=== PATIENT | male | born 1960 | race American Indian/Alaskan Native ===

== ENCOUNTER 2017-06-17 03:55 | Emergency (ER) | payer OTHER ==
--- NOTE | 2017-06-17 05:01 | XRay Report ---
FINAL REPORT EXAM: XR CHEST ROUTINE 2V HISTORY: Shortness of breath TECHNIQUE: PA and lateral views of the chest were submitted. FINDINGS: The heart is mildly enlarged. The lungs appear mildly congested. There is slight thickening of the fissures. There are no localized infiltrates. Pleural fluid is not seen. The skeletal structures are well-maintained. IMPRESSION: Cardiomegaly with mild vascular congestion. No localized infiltrates.
[2017-06-17 05:37] LABS: BUN/Creatinine Ratio 15; Blood Urea Nitrogen 15 mg/dL (9-20); Calcium 8.7 mg/dL (8.4-10.2); Hemolysis Index 3
[2017-06-17 05:38] LABS: Basophils % (Auto) 1.2 % (0.0-1.8); Eosinophils # (Auto) 0.1 K/mm3 (0.0-0.4); Eosinophils % (Auto) 1.6 % (0.0-4.3); Hematocrit 50.7 % (35.5-45.6); Hemoglobin 17.1 gm/dl (11.8-15.2); Lymphocytes % (Auto) 25.8 % (13.4-35.0); Mean Corpuscular HGB Conc 34 % (32-34); Mean Corpuscular Hemoglobin 29 pg (28-32); Mean Corpuscular Volume 87 fl (84-94); Monocytes # (Auto) 0.3 K/mm3 (0.0-0.8); Red Blood Count 5.85 M/mm3 (3.65-5.03)
[2017-06-17 05:45] LABS: Platelet Count 278 K/mm3 (140-440)
--- NOTE | 2017-06-17 13:16 | Emergency Department Report ---
ED Shortness of Breath HPI - General Chief Complaint: Dyspnea/Respdistress Stated Complaint: CHAY Time Seen by Provider: 06/17/17 13:01 Source: patient, EMS Mode of arrival: Ambulatory Limitations: No Limitations - History of Present Illness Initial Comments: Patient is a 56-year-old [place] male with past medical history of congestive heart failure with EF of 20% and hypertension and has been off his meds for approximately one year secondary to finances. Patient states he has a nonproductive cough with exertion at times. The patient denies any chest pain at this time. Patient is now that working and states he wants to try to get back on his meds because he is having shortness of breath. The patient denies any fevers chills nausea vomiting chest pain headache at this time. Associated Symptoms: cough - Related Data Previous Rx's Medication Instructions Recorded Last Taken Type Aspirin [Aspirin BABY CHEW TAB] 81 mg PO QDAY #30 tab.chew 06/17/17 Unknown Rx Furosemide [Lasix] 20 mg PO DAILY #30 tablet 06/17/17 Unknown Rx Lisinopril [Zestril TAB] 5 mg PO QDAY #30 tablet 06/17/17 Unknown Rx Metoprolol [Lopressor TAB] 50 mg PO BID #60 tablet 06/17/17 Unknown Rx Simvastatin [Zocor TAB] 20 mg PO QHS #30 tablet 06/17/17 Unknown Rx Allergies Allergy/AdvReac Type Severity Reaction Status Date / Time No Known Allergies Allergy Verified 06/17/17 04:42 ED Review of Systems ROS: Stated complaint: CHAY Other details as noted in HPI Comment: All other systems reviewed and negative ED Past Medical Hx - Past Medical History Previous Medical History?: Yes Hx Hypertension: Yes Hx Congestive Heart Failure: Yes - Surgical History Past Surgical History?: Yes Additional Surgical History: bilateral kness - Social History Smoking Status: Never Smoker Substance Use Type: None - Medications Home Medications: Home Medications Medication Instructions Recorded Confirmed Last Taken Type Aspirin [Aspirin BABY CHEW TAB] 81 mg PO QDAY #30 tab.chew 06/17/17 Unknown Rx Furosemide [Lasix] 20 mg PO DAILY #30 tablet 06/17/17 Unknown Rx Lisinopril [Zestril TAB] 5 mg PO QDAY #30 tablet 06/17/17 Unknown Rx Metoprolol [Lopressor TAB] 50 mg PO BID #60 tablet 06/17/17 Unknown Rx Simvastatin [Zocor TAB] 20 mg PO QHS #30 tablet 06/17/17 Unknown Rx ED Physical Exam - General Limitations: No Limitations General appearance: alert, in no apparent distress - Head Head exam: Present: atraumatic, normocephalic - Eye Eye exam: Present: normal appearance - ENT ENT exam: Present: mucous membranes moist - Neck Neck exam: Present: normal inspection - Respiratory Respiratory exam: Present: normal lung sounds bilaterally. Absent: respiratory distress, wheezes, rales, rhonchi - Cardiovascular Cardiovascular Exam: Present: normal rhythm, tachycardia. Absent: systolic murmur, diastolic murmur, rubs, gallop - GI/Abdominal GI/Abdominal exam: Present: soft, normal bowel sounds. Absent: distended, tenderness, guarding, rebound - Rectal Rectal exam: Present: deferred - Extremities Exam Extremities exam: Present: normal inspection - Back Exam Back exam: Present: normal inspection - Neurological Exam Neurological exam: Present: alert, oriented X3 - Psychiatric Psychiatric exam: Present: normal affect, normal mood - Skin Skin exam: Present: warm, dry, intact, normal color. Absent: rash ED Course Vital Signs 06/17/17 04:38 Temperature 98.2 F Pulse Rate 111 H Respiratory 18 Rate Blood Pressure 168/100 O2 Sat by Pulse 96 Oximetry ED Medical Decision Making - Lab Data Result diagrams: 06/17/17 05:13 06/17/17 05:10 Lab Results 06/17/17 06/17/17 Range/Units 05:10 05:13 WBC 3.9 L (4.5-11.0) K/mm3 RBC 5.85 H (3.65-5.03) M/mm3 Hgb 17.1 H (11.8-15.2) gm/dl Hct 50.7 H (35.5-45.6) % MCV 87 (84-94) fl MCH 29 (28-32) pg MCHC 34 (32-34) % RDW 15.0 (13.2-15.2) % Plt Count 278 (140-440) K/mm3 Lymph % (Auto) 25.8 (13.4-35.0) % [place] % (Auto) 9.0 H (0.0-7.3) % Eos % (Auto) 1.6 (0.0-4.3) % Baso % (Auto) 1.2 (0.0-1.8) % Lymph # 1.0 L (1.2-5.4) K/mm3 [place] # 0.3 (0.0-0.8) K/mm3 Eos # 0.1 (0.0-0.4) K/mm3 Baso # 0.0 (0.0-0.1) K/mm3 Seg Neutrophils % 62.4 (40.0-70.0) % Seg Neutrophils # 2.4 (1.8-7.7) K/mm3 Sodium 143 (137-145) mmol/L Potassium 4.2 (3.6-5.0) mmol/L Chloride 105.5 (98-107) mmol/L Carbon Dioxide 22 (22-30) mmol/L Anion Gap 20 mmol/L BUN 15 (9-20) mg/dL Creatinine 1.0 (0.8-1.5) mg/dL Estimated GFR > 60 ml/min BUN/Creatinine Ratio 15 % Glucose 117 H (75-100) mg/dL Calcium 8.7 (8.4-10.2) mg/dL Troponin T 0.014 (0.00-0.029) ng/mL NT-Pro-B Natriuret Pep 799.2 (0-900) pg/mL - EKG Data -: EKG Interpreted by Ct - EKG Data Interpretation: other (EKG shows sinus tachycardia 111 is incomplete left bundle branch block and LVH patient has T-wave inversions in lateral leads there is no obvious ST elevation consistent with a STEMI time of interpretation is 4:07 AM this EKG is compared to previous EKG that showed no significant changes) - Radiology Data Radiology results: report reviewed Chest x-ray shows cardiomegaly with vascular congestion but no overt evidence of failure - Medical Decision Making Patient is a 56-year-old [place] male who is complaining of shortness of breath at times. Patient's been off of his blood pressure medicines and Lasix for approximately 1 year. The patient states that working will have health insurance plan next week. Patient be restarted on his metoprolol for his hypertension and tachycardia as well as lisinopril 5 mg and Lasix 20 mg daily and patient will be discharged home follow with cardiology. Critical care attestation.: If time is entered above; I have spent that time in minutes in the direct care of this critically ill patient, excluding procedure time. ED Disposition Clinical Impression: Hypertensive urgency Cardiomyopathy Qualifiers: Cardiomyopathy type: unspecified Qualified Code(s): I42.9 - Cardiomyopathy, unspecified Disposition: TO HOME OR SELFCARE Is pt being admited?: No Does the pt Need Aspirin: No Condition: Stable Instructions: Chronic Hypertension (ED), Heart Failure (ED) Prescriptions: Simvastatin [Zocor TAB] 20 mg PO QHS #30 tablet Aspirin [Aspirin BABY CHEW TAB] 81 mg PO QDAY #30 tab.chew Furosemide [Lasix] 20 mg PO DAILY #30 tablet Lisinopril [Zestril TAB] 5 mg PO QDAY #30 tablet Metoprolol [Lopressor TAB] 50 mg PO BID #60 tablet Referrals: MICHAEL ARZOLA MD [Staff Physician] - 3-5 Days
[2017-06-17] MEDS ORDERED: LASIX PO ONE (13:21)
[2017-06-17] MEDS ORDERED: CATAPRES PO ONE (13:21)
[2017-06-17 14:12] VITALS: BP 156/100
== END 2017-06-17 14:13 | disposition home or self-care (01) ==
LOC: ED 03:55
DX: I16.0 Hypertensive urgency (principal); I11.0 Hypertensive heart disease with heart failure; I50.9 Heart failure, unspecified; I42.9 Cardiomyopathy, unspecified
CPT/HCPCS: 36415; 71046; 80048; 83880; 84484; 85025; 93005; 93010

== ENCOUNTER 2020-05-01 10:37 | Inpatient (IN) | payer OTHER ==
--- NOTE | 2020-05-01 12:02 | Event Note ---
ED Screening Note Date of service: 05/01/20 Time: 12:01 ED Screening Note: 59 year AA male with pmhx of CHF, HTN, HPLD presents to ED c/o SOB. Onset about 1 week ago, worse today. He denies any associated chest pain, cough, wheezing, nausea, vomiting or leg swelling. Patient states that he has been out of all of his medication for the past 2 to 3 months. 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 Denies tobacco use. He denies any lung disease. This initial assessment/diagnostic orders/clinical plan/treatment(s) is/are subject to change based on patients health status, clinical progression and re-assessment by fellow clinical providers in the ED. Further treatment and workup at subsequent clinical providers discretion. Patient/guardian urged not to elope from the ED as their condition may be serious if not clinically assessed and managed. Initial orders include: Chest pain order set including BNP
--- NOTE | 2020-05-01 12:39 | XRay Report ---
XR chest routine 2V INDICATION / CLINICAL INFORMATION: Congestive heart failure, shortness of breath. COMPARISON: None available. FINDINGS: SUPPORT DEVICES: None. HEART /PULMONARY VASCULATURE: Cardiac silhouette is enlarged and pulmonary vasculature is mildly pacheco ested. LUNGS / PLEURA: Patchy airspace opacities are present within the right mid and lower lung. Left lung is largely clear. No pneumothorax. ADDITIONAL FINDINGS: No significant additional findings. IMPRESSION: Asymmetric airspace opacity in the right mid and lower lung may reflect asymmetric pulmonary edema re lated to CHF. Recommend correlation to exclude superimposed atypical infectious or inflammatory pneum onitis. Signer Name: Evelio Pérez MD Signed: 05/01/2020 12:34 PM Workstation Name: [id number]
[2020-05-01 13:26] LABS: Basophils % (Auto) 0.8 % (0.0-1.8); Eosinophils % (Auto) 0.1 % (0.0-4.3); Hematocrit 46.4 % (35.5-45.6); Hemoglobin 15.5 gm/dl (11.8-15.2); Lymphocytes # (Auto) 0.7 K/mm3 (1.2-5.4); Lymphocytes % (Auto) 11.9 % (13.4-35.0); Mean Corpuscular HGB Conc 33 % (32-34); Mean Corpuscular Volume 93 fl (84-94); Monocytes # (Auto) 0.6 K/mm3 (0.0-0.8); Monocytes % (Auto) 10.1 % (0.0-7.3); Platelet Count 353 K/mm3 (140-440); Red Blood Count 5.01 M/mm3 (3.65-5.03); Red Cell Distribution Width 17.1 % (13.2-15.2)
[2020-05-01 13:50] LABS: Alanine Aminotransferase 15 units/L (7-56); Albumin 4.1 g/dL (3.9-5); BUN/Creatinine Ratio 13; Blood Urea Nitrogen 14 mg/dL (9-20); Calcium 9.4 mg/dL (8.4-10.2); Hemolysis Index 10
[2020-05-01 14:52] LABS: Chol/HDL Ratio 3.44 %; HDL Cholesterol 67 mg/dL (40-59); LDL Cholesterol,Direct 162 mg/dL (50-130)
[2020-05-01 18:26] LABS: Bilirubin,Urine NEG (Negative); Blood,Urine SM (Negative); Color,Urine Yellow (Yellow); Mucus,Urine 1+ /HPF
[2020-05-01] MEDS ORDERED: FUROSEMIDE 40 MG/4 ML INJ IV ONE (18:33)
--- NOTE | 2020-05-01 18:33 | Emergency Department Report ---
ED General Adult HPI - General Chief complaint: Dyspnea/Respdistress Stated complaint: MED REFILL/SOB Time Seen by Provider: 05/01/20 11:10 Source: patient, EMS Mode of arrival: Wheelchair Limitations: No Limitations - History of Present Illness Initial comments: The patient presents to the emergency department with a chief complaint of shortness of breath that has gotten worse over the last 3 to 4 days. Patient states he was at urgent care given the physical for a new job that he recently obtained. Patient states he has a history congestive heart failure but has not had his medications for the last 2 months because he lost his last job. Patient denies any chest pain, abdominal pain, headache. Patient states that he cannot lay down without getting short of breath. He also states that any movement causes shortness of breath. -: Gradual Severity scale (0 -10): 0 Consistency: constant Improves with: rest Worsens with: movement Associated Symptoms: denies other symptoms, shortness of breath. denies: chest pain, nausea/vomiting Treatments Prior to Arrival: none - Related Data Previous Rx's Medication Instructions Recorded Last Taken Type Aspirin [Aspirin BABY CHEW TAB] 81 mg PO QDAY #30 tab.chew 06/17/17 Unknown Rx Furosemide [Lasix] 20 mg PO DAILY #30 tablet 06/17/17 Unknown Rx Metoprolol [Lopressor TAB] 50 mg PO BID #60 tablet 06/17/17 Unknown Rx Simvastatin (Nf) [Zocor TAB] 20 mg PO QHS #30 tablet 06/17/17 Unknown Rx lisinopriL [Zestril TAB] 5 mg PO QDAY #30 tablet 06/17/17 Unknown Rx Allergies Allergy/AdvReac Type Severity Reaction Status Date / Time No Known Allergies Allergy Verified 06/17/17 04:42 ED Review of Systems ROS: Stated complaint: MED REFILL/SOB Other details as noted in HPI Comment: All other systems reviewed and negative Constitutional: denies: chills, fever Eyes: denies: eye pain, eye discharge, vision change ENT: denies: ear pain, throat pain Respiratory: shortness of breath. denies: cough, wheezing Cardiovascular: denies: chest pain, palpitations Endocrine: no symptoms reported Gastrointestinal: denies: abdominal pain, nausea, diarrhea Genitourinary: denies: urgency, dysuria Musculoskeletal: denies: back pain, joint swelling, arthralgia Skin: denies: rash, lesions Neurological: denies: headache, weakness, paresthesias Psychiatric: denies: anxiety, depression Hematological/Lymphatic: denies: easy bleeding, easy bruising ED Past Medical Hx - Past Medical History Previous Medical History?: Yes Hx Hypertension: Yes Hx Congestive Heart Failure: Yes Additional medical history: high cholestrol - Surgical History Past Surgical History?: Yes Additional Surgical History: bilateral kness - Social History Smoking Status: Never Smoker Substance Use Type: None - Medications Home Medications: Home Medications Medication Instructions Recorded Confirmed Last Taken Type Aspirin [Aspirin BABY CHEW TAB] 81 mg PO QDAY #30 tab.chew 06/17/17 Unknown Rx Furosemide [Lasix] 20 mg PO DAILY #30 tablet 06/17/17 Unknown Rx Metoprolol [Lopressor TAB] 50 mg PO BID #60 tablet 06/17/17 Unknown Rx Simvastatin (Nf) [Zocor TAB] 20 mg PO QHS #30 tablet 06/17/17 Unknown Rx lisinopriL [Zestril TAB] 5 mg PO QDAY #30 tablet 06/17/17 Unknown Rx ED Physical Exam - General Limitations: No Limitations General appearance: alert, in no apparent distress - Head Head exam: Present: atraumatic, normocephalic - Eye Eye exam: Present: normal appearance - ENT ENT exam: Present: mucous membranes moist - Neck Neck exam: Present: normal inspection - Respiratory Respiratory exam: Present: rales (bilaterally ). Absent: respiratory distress - Cardiovascular Cardiovascular Exam: Present: normal rhythm, tachycardia. Absent: systolic murmur, diastolic murmur, rubs, gallop - GI/Abdominal GI/Abdominal exam: Present: soft, normal bowel sounds. Absent: distended, tenderness - Rectal Rectal exam: Present: deferred - Extremities Exam Extremities exam: Present: normal inspection - Back Exam Back exam: Present: normal inspection - Neurological Exam Neurological exam: Present: alert, oriented X3, CN II-XII intact. Absent: motor sensory deficit - Psychiatric Psychiatric exam: Present: normal affect, normal mood - Skin Skin exam: Present: warm, dry, intact, normal color. Absent: rash ED Course Vital Signs 05/01/20 10:49 Temperature 98.3 F Pulse Rate 127 H Respiratory 22 Rate Blood Pressure 129/99 [Right] O2 Sat by Pulse 94 Oximetry ED Medical Decision Making - Lab Data Result diagrams: 05/01/20 12:42 05/01/20 12:42 Lab Results 05/01/20 05/01/20 05/01/20 Range/Units 12:42 12:42 12:42 WBC 5.7 (4.5-11.0) K/mm3 RBC 5.01 (3.65-5.03) M/mm3 Hgb 15.5 H (11.8-15.2) gm/dl Hct 46.4 H (35.5-45.6) % MCV 93 (84-94) fl MCH 31 (28-32) pg MCHC 33 (32-34) % RDW 17.1 H (13.2-15.2) % Plt Count 353 (140-440) K/mm3 Lymph % (Auto) 11.9 L (13.4-35.0) % [place] % (Auto) 10.1 H (0.0-7.3) % Eos % (Auto) 0.1 (0.0-4.3) % Baso % (Auto) 0.8 (0.0-1.8) % Lymph # (Auto) 0.7 L (1.2-5.4) K/mm3 [place] # (Auto) 0.6 (0.0-0.8) K/mm3 Eos # (Auto) 0.0 (0.0-0.4) K/mm3 Baso # (Auto) 0.0 (0.0-0.1) K/mm3 Seg Neutrophils % 77.1 H (40.0-70.0) % Seg Neutrophils # 4.4 (1.8-7.7) K/mm3 Sodium 141 (137-145) mmol/L Potassium 4.6 (3.6-5.0) mmol/L Chloride 107.1 H (98-107) mmol/L Carbon Dioxide 21 L (22-30) mmol/L Anion Gap 18 mmol/L BUN 14 (9-20) mg/dL Creatinine 1.1 (0.8-1.3) mg/dL Estimated GFR > 60 ml/min BUN/Creatinine Ratio 13 % Glucose 87 (75-100) mg/dL Calcium 9.4 (8.4-10.2) mg/dL Magnesium 2.10 (1.7-2.3) mg/dL Total Bilirubin 0.90 (0.1-1.2) mg/dL AST 19 (5-40) units/L ALT 15 (7-56) units/L Alkaline Phosphatase 59 (35-129) units/L Troponin T 0.248 H* (0.00-0.029) ng/mL NT-Pro-B Natriuret Pep 1929 H (0-900) pg/mL Total Protein 6.8 (6.3-8.2) g/dL Albumin 4.1 (3.9-5) g/dL Albumin/Globulin Ratio 1.5 % Triglycerides 64 (2-149) mg/dL Cholesterol 231 H (50-199) mg/dL LDL Cholesterol Direct 162 H (50-130) mg/dL HDL Cholesterol 67 H (40-59) mg/dL Cholesterol/HDL Ratio 3.44 % Urine Color (Yellow) Urine Turbidity (Clear) Urine pH (5.0-7.0) Ur Specific [place] (1.003-1.030) Urine Protein (Negative) mg/dL Urine Glucose (UA) (Negative) mg/dL Urine Ketones (Negative) mg/dL Urine Blood (Negative) Urine Nitrite (Negative) Urine Bilirubin (Negative) Urine Urobilinogen (<2.0) mg/dL Ur Leukocyte Esterase (Negative) Urine WBC (Auto) (0.0-6.0) /HPF Urine RBC (Auto) (0.0-6.0) /HPF U Epithel Cells (Auto) (0-13.0) /HPF Urine Mucus /HPF 05/01/20 05/01/20 Range/Units 14:59 Unknown WBC (4.5-11.0) K/mm3 RBC (3.65-5.03) M/mm3 Hgb (11.8-15.2) gm/dl Hct (35.5-45.6) % MCV (84-94) fl MCH (28-32) pg MCHC (32-34) % RDW (13.2-15.2) % Plt Count (140-440) K/mm3 Lymph % (Auto) (13.4-35.0) % [place] % (Auto) (0.0-7.3) % Eos % (Auto) (0.0-4.3) % Baso % (Auto) (0.0-1.8) % Lymph # (Auto) (1.2-5.4) K/mm3 [place] # (Auto) (0.0-0.8) K/mm3 Eos # (Auto) (0.0-0.4) K/mm3 Baso # (Auto) (0.0-0.1) K/mm3 Seg Neutrophils % (40.0-70.0) % Seg Neutrophils # (1.8-7.7) K/mm3 Sodium (137-145) mmol/L Potassium (3.6-5.0) mmol/L Chloride (98-107) mmol/L Carbon Dioxide (22-30) mmol/L Anion Gap mmol/L BUN (9-20) mg/dL Creatinine (0.8-1.3) mg/dL Estimated GFR ml/min BUN/Creatinine Ratio % Glucose (75-100) mg/dL Calcium (8.4-10.2) mg/dL Magnesium (1.7-2.3) mg/dL Total Bilirubin (0.1-1.2) mg/dL AST (5-40) units/L ALT (7-56) units/L Alkaline Phosphatase (35-129) units/L Troponin T 0.252 H* (0.00-0.029) ng/mL NT-Pro-B Natriuret Pep (0-900) pg/mL Total Protein (6.3-8.2) g/dL Albumin (3.9-5) g/dL Albumin/Globulin Ratio % Triglycerides (2-149) mg/dL Cholesterol (50-199) mg/dL LDL Cholesterol Direct (50-130) mg/dL HDL Cholesterol (40-59) mg/dL Cholesterol/HDL Ratio % Urine Color Yellow (Yellow) Urine Turbidity Slightly-cloudy (Clear) Urine pH 5.0 (5.0-7.0) Ur Specific [place] 1.019 (1.003-1.030) Urine Protein 100 mg/dl (Negative) mg/dL Urine Glucose (UA) Neg (Negative) mg/dL Urine Ketones Tr (Negative) mg/dL Urine Blood Sm (Negative) Urine Nitrite Neg (Negative) Urine Bilirubin Neg (Negative) Urine Urobilinogen 2.0 (<2.0) mg/dL Ur Leukocyte Esterase Tr (Negative) Urine WBC (Auto) 19.0 H (0.0-6.0) /HPF Urine RBC (Auto) 1.0 (0.0-6.0) /HPF U Epithel Cells (Auto) 2.0 (0-13.0) /HPF Urine Mucus 1+ /HPF - EKG Data -: EKG Interpreted by Me EKG shows normal: sinus rhythm Rate: tachycardia - Radiology Data Radiology results: report reviewed - Medical Decision Making IV Lasix given Discussed results with patient Elevated troponin likely secondary to leak from myocardial stretch Critical Care Time: Yes Critical care time in (mins) excluding proc time.: 35 Critical care attestation.: If time is entered above; I have spent that time in minutes in the direct care of this critically ill patient, excluding procedure time. ED Disposition Clinical Impression: Acute exacerbation of CHF (congestive heart failure), Elevated troponin Disposition: DC-09 OP ADMIT IP TO THIS HOSP Is pt being admited?: Yes Does the pt Need Aspirin: Yes Condition: Fair Referrals: PRIMARY CARE, [Primary Care Provider] - 3-5 Days
[2020-05-01] MEDS ORDERED: ASPIRIN 81 MG TAB CHEW PO ONE (18:43)
--- NOTE | 2020-05-01 20:16 | History and Physical Report ---
History of Present Illness Date of examination: 05/01/20 Date of admission: 05/01/20 18:43 Chief complaint: Shortness of breath History of present illness: The patient presents to the emergency department with a chief complaint of shortness of breath that has gotten worse over the last 3 to 4 days. Patient states he was at urgent care given the physical for a new job that he recently obtained. Patient states he has a history congestive heart failure but has not had his medications for the last 2 months because he lost his last job. Patient denies any chest pain, abdominal pain, headache. Patient states that he cannot lay down without getting short of breath. He also states that any movement causes shortness of breath Past History Past Medical History: hypertension, hyperlipidemia Past Surgical History: No surgical history Social history: alcohol abuse (occasional drinker) Family history: no significant family history Medications and Allergies Allergies Allergy/AdvReac Type Severity Reaction Status Date / Time No Known Allergies Allergy Verified 06/17/17 04:42 Home Medications Medication Instructions Recorded Confirmed Last Taken Type Aspirin [Aspirin BABY CHEW TAB] 81 mg PO QDAY #30 tab.chew 06/17/17 Unknown Rx Furosemide [Lasix] 20 mg PO DAILY #30 tablet 06/17/17 Unknown Rx Metoprolol [Lopressor TAB] 50 mg PO BID #60 tablet 06/17/17 Unknown Rx Simvastatin (Nf) [Zocor TAB] 20 mg PO QHS #30 tablet 06/17/17 Unknown Rx lisinopriL [Zestril TAB] 5 mg PO QDAY #30 tablet 06/17/17 Unknown Rx Review of Systems Constitutional: fatigue, weakness Ears, nose, mouth and throat: no epistaxis Cardiovascular: shortness of breath, dyspnea on exertion, high blood pressure, decreased exercise tolerance Respiratory: shortness of breath Exam - Constitutional Vitals: Temp Pulse Resp BP Pulse Ox 97.9 F 120 H 22 140/106 99 05/01/20 17:31 05/01/20 17:31 05/01/20 19:31 05/01/20 19:31 05/01/20 19:31 HEART Score - HEART Score Troponin: Troponin T 0.295 ng/mL (0.00-0.029) H* 05/01/20 18:03 Results - Labs CBC & Chem 7: 05/01/20 12:42 05/01/20 12:42 Labs: Abnormal lab results 05/01/20 05/01/20 05/01/20 Range/Units 12:42 12:42 12:42 Hgb 15.5 H (11.8-15.2) gm/dl Hct 46.4 H (35.5-45.6) % RDW 17.1 H (13.2-15.2) % Lymph % (Auto) 11.9 L (13.4-35.0) % [place] % (Auto) 10.1 H (0.0-7.3) % Lymph # (Auto) 0.7 L (1.2-5.4) K/mm3 Seg Neutrophils % 77.1 H (40.0-70.0) % Chloride 107.1 H (98-107) mmol/L Carbon Dioxide 21 L (22-30) mmol/L Troponin T 0.248 H* (0.00-0.029) ng/mL NT-Pro-B Natriuret Pep 1929 H (0-900) pg/mL Cholesterol 231 H (50-199) mg/dL LDL Cholesterol Direct 162 H (50-130) mg/dL HDL Cholesterol 67 H (40-59) mg/dL Urine WBC (Auto) (0.0-6.0) /HPF 05/01/20 05/01/20 05/01/20 Range/Units 14:59 18:03 Unknown Hgb (11.8-15.2) gm/dl Hct (35.5-45.6) % RDW (13.2-15.2) % Lymph % (Auto) (13.4-35.0) % [place] % (Auto) (0.0-7.3) % Lymph # (Auto) (1.2-5.4) K/mm3 Seg Neutrophils % (40.0-70.0) % Chloride (98-107) mmol/L Carbon Dioxide (22-30) mmol/L Troponin T 0.252 H* 0.295 H* (0.00-0.029) ng/mL NT-Pro-B Natriuret Pep (0-900) pg/mL Cholesterol (50-199) mg/dL LDL Cholesterol Direct (50-130) mg/dL HDL Cholesterol (40-59) mg/dL Urine WBC (Auto) 19.0 H (0.0-6.0) /HPF
--- NOTE | 2020-05-01 20:36 | History and Physical Report ---
History of Present Illness Date of examination: 05/01/20 Date of admission: 05/01/20 18:43 Chief complaint: 05/01/20 History of present illness: The patient presents to the emergency department with a chief complaint of shortness of breath that has gotten worse over the last 3 to 4 days. Patient states he was at urgent care given the physical for a new job that he recently obtained. Patient states he has a history congestive heart failure but has not had his medications for the last 2 months because he lost his last job. Patient denies any chest pain, abdominal pain, headache. Patient states that he cannot lay down without getting short of breath. He also states that any movement causes shortness of breath. ED work-up shows WBC 5.7, hemoglobin 15.5, platelet 353, potassium 4.6, sodium 141, CO2 21 and creatinine 1.1. Checks x-ray done-Asymmetric airspace opacity in the right mid and lower lung may reflect asymmetric pulmonary edema related to CHF. Recommend correlation to exclude superimposed atypical infectious or inflammatory pneumonitis. Patient seen at bedside in ED. Patient alert and oriented x3. He said he came due to shortness of breath that was ongoing for 3 to 4 days. He said he has a history of CHF and on medication but have not been taking his medicine since he lost his job. He said he did not have money to buy the medicine. On assessment, patient appears to have mild shortness of breath. He said his symptoms have improved. I reviewed the labs patient has elevated troponin. CK/CKMB ordered. Past History Past Medical History: hypertension, hyperlipidemia Past Surgical History: No surgical history Social history: alcohol abuse (occasional) Medications and Allergies Allergies Allergy/AdvReac Type Severity Reaction Status Date / Time No Known Allergies Allergy Verified 06/17/17 04:42 Home Medications Medication Instructions Recorded Confirmed Last Taken Type Aspirin [Aspirin BABY CHEW TAB] 81 mg PO QDAY #30 tab.chew 06/17/17 Unknown Rx Furosemide [Lasix] 20 mg PO DAILY #30 tablet 06/17/17 Unknown Rx Metoprolol [Lopressor TAB] 50 mg PO BID #60 tablet 06/17/17 Unknown Rx Simvastatin (Nf) [Zocor TAB] 20 mg PO QHS #30 tablet 06/17/17 Unknown Rx lisinopriL [Zestril TAB] 5 mg PO QDAY #30 tablet 06/17/17 Unknown Rx Review of Systems Constitutional: fatigue, weakness Ears, nose, mouth and throat: no epistaxis Cardiovascular: shortness of breath, dyspnea on exertion, high blood pressure Respiratory: shortness of breath Gastrointestinal: no melena Rectal: no hemorrhoids Musculoskeletal: no neck stiffness Integumentary: no rash, no pruritis Psychiatric: no anxiety Hematologic/Lymphatic: no easy bruising Allergic/Immunologic: no urticaria Exam - Constitutional Vitals: Temp Pulse Resp BP Pulse Ox 97.9 F 120 H 22 140/106 99 05/01/20 17:31 05/01/20 17:31 05/01/20 19:31 05/01/20 19:31 05/01/20 19:31 General appearance: Present: mild distress, obese - EENT Eyes: Present: PERRL ENT: hearing intact, clear oral mucosa - Neck Neck: Present: supple, normal ROM - Respiratory Respiratory effort: normal Respiratory: bilateral: diminished - Cardiovascular Heart rate: 122 Heart Sounds: Present: S1 & S2. Absent: rub, click - Extremities Extremities: pulses symmetrical Peripheral Pulses: within normal limits - Abdominal General gastrointestinal: Present: soft, non-tender, non-distended, normal bowel sounds Male genitourinary: Present: normal - Integumentary Integumentary: Present: clear, warm, dry - Musculoskeletal Musculoskeletal: gait normal, strength equal bilaterally - Psychiatric Psychiatric: appropriate mood/affect, intact judgment & insight - Neurologic Neurologic: CNII-XII intact, moves all extremities - Allied Health Allied health notes reviewed: nursing HEART Score - HEART Score Troponin: Troponin T 0.295 ng/mL (0.00-0.029) H* 05/01/20 18:03 Results - Labs CBC & Chem 7: 05/01/20 12:42 05/01/20 12:42 Labs: Abnormal lab results 05/01/20 05/01/20 05/01/20 Range/Units 12:42 12:42 12:42 Hgb 15.5 H (11.8-15.2) gm/dl Hct 46.4 H (35.5-45.6) % RDW 17.1 H (13.2-15.2) % Lymph % (Auto) 11.9 L (13.4-35.0) % [place] % (Auto) 10.1 H (0.0-7.3) % Lymph # (Auto) 0.7 L (1.2-5.4) K/mm3 Seg Neutrophils % 77.1 H (40.0-70.0) % Chloride 107.1 H (98-107) mmol/L Carbon Dioxide 21 L (22-30) mmol/L Troponin T 0.248 H* (0.00-0.029) ng/mL NT-Pro-B Natriuret Pep 1929 H (0-900) pg/mL Cholesterol 231 H (50-199) mg/dL LDL Cholesterol Direct 162 H (50-130) mg/dL HDL Cholesterol 67 H (40-59) mg/dL Urine WBC (Auto) (0.0-6.0) /HPF 05/01/20 05/01/20 05/01/20 Range/Units 14:59 18:03 Unknown Hgb (11.8-15.2) gm/dl Hct (35.5-45.6) % RDW (13.2-15.2) % Lymph % (Auto) (13.4-35.0) % [place] % (Auto) (0.0-7.3) % Lymph # (Auto) (1.2-5.4) K/mm3 Seg Neutrophils % (40.0-70.0) % Chloride (98-107) mmol/L Carbon Dioxide (22-30) mmol/L Troponin T 0.252 H* 0.295 H* (0.00-0.029) ng/mL NT-Pro-B Natriuret Pep (0-900) pg/mL Cholesterol (50-199) mg/dL LDL Cholesterol Direct (50-130) mg/dL HDL Cholesterol (40-59) mg/dL Urine WBC (Auto) 19.0 H (0.0-6.0) /HPF Assessment and Plan - Patient Problems (1) Acute exacerbation of CHF (congestive heart failure) Current Visit: Yes Status: Acute Plan to address problem: Cardioprotective measures with diuretics, BB, statin, and oxygen supplement if needed Screenplay Writer consulted will follow up with recommendation Echo ordered. Chest [id number] airspace opacity in the right mid and lower lung may reflect asymmetric pulmonary edema related to CHF. Recommend correlation to exclude superimposed atypical infectious or inflammatory pneumonitis. (2) HTN (hypertension), malignant Current Visit: No Status: Acute Plan to address problem: Monitor blood pressure Resume home medication Adjust blood pressure medicine if needed (3) Hyperlipemia Current Visit: No Status: Acute Plan to address problem: Patient has history of hyperlipidemia Resume home statin Discussed life style modification-avoid fried foods and animal fats (4) Elevated troponin Current Visit: Yes Status: Acute Plan to address problem: CK/CKMB ordered (5) Acute cystitis Current Visit: Yes Status: Acute Plan to address problem: Urinalysis shows elevated WBC We will start patient on empiric antibiotic (6) Pulmonary edema Current Visit: Yes Status: Acute Plan to address problem: questionable cause-likely 2/2 to CHF/pneumonia Pulmonary edema/lung opacity on chest x-ray Empiric antibiotics and diuretic Echo follow-up with results Cardiology consult (7) DVT prophylaxis Current Visit: No Status: Acute Plan to address problem: SQ lovenox
[2020-05-01] MEDS ORDERED: LACTULOSE 20 GM/30 ML ORAL LIQD PO PRN (21:09)
[2020-05-01] MEDS ORDERED: ALUM-MAG HYDROXIDE-SIMETHICONE 200-200-20MG/5ML ORAL LIQD 30 ML PO PRN (21:09)
[2020-05-01] MEDS ORDERED: ONDANSETRON 4 MG/2 ML INJ IV PRN (21:09)
[2020-05-01] MEDS ORDERED: traZODone 50 MG TAB PO PRN (21:11)
[2020-05-01 21:30] LABS: Creatine Kinase MB 10.1 ng/mL (0.0-4.0)
[2020-05-01] MEDS ORDERED: AZITHROMYCIN/NS 500 MG/250 ML 500 MG/250 ML BAG IV SCH (22:00)
[2020-05-02] MEDS: ENOXAPARIN 40 MG/0.4 ML INJ SUB-Q SCH ×2 (00:19→15:45)
[2020-05-02] MEDS: cefTRIAXone/NS 1 GM/50 ML 1 GM/50 ML BAG IV SCH ×2 (00:20→21:52)
[2020-05-02] MEDS: METOPROLOL TARTRATE 50 MG TAB PO SCH ×3 (00:20→21:49)
[2020-05-02] MEDS: FUROSEMIDE 40 MG/4 ML INJ IV SCH ×2 (06:06→19:48)
--- NOTE | 2020-05-02 13:05 | Consultation ---
History of Present Illness Consult date: 05/02/20 Consult reason: congestive heart failure History of present illness: 59-year old M with a history of dilated nonischemic cardiomyopathy by stress thallium test 6 years ago that reports no significant reversible ischemia but a decrease left ventricular ejection fraction less than 20%. 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 He presents to the hospital with shortness of breath, admitted for further evaluation. Chest x-ray reports cardiomegaly with mild interstitial edema. There was also patchy airspace opacities within the right lung. Patient is currently undergoing workup for coronavirus. COVID test result is pending. Cardiac consultation has been requested for CHF. There is no report of chest pain, no palpitation and no dizziness. There is no lower extremity edema. 12 lead ECG is sinus tachycardia, LVH with repolarization abnormalities. Past History Past Medical History: heart failure, hypertension, hyperlipidemia Past Surgical History: No surgical history Social history: alcohol abuse (occasional) Medications and Allergies Allergies Allergy/AdvReac Type Severity Reaction Status Date / Time No Known Allergies Allergy Verified 06/17/17 04:42 Home Medications Medication Instructions Recorded Confirmed Last Taken Type Aspirin [Aspirin BABY CHEW TAB] 81 mg PO QDAY #30 tab.chew 06/17/17 05/02/20 Unknown Rx Furosemide [Lasix] 20 mg PO DAILY #30 tablet 06/17/17 05/02/20 3 Months Ago Rx ~01/31/20 Atorvastatin Calcium [Lipitor] 80 mg PO DAILY 05/02/20 05/02/20 3 Months Ago History ~01/31/20 ISOSORBIDE MONOnitrate [Imdur ER] 30 mg PO DAILY 05/02/20 05/02/20 3 Months Ago History ~01/31/20 lisinopriL [Zestril TAB] 10 mg PO QDAY 05/02/20 05/02/20 3 Months Ago History ~01/31/20 Active Meds: Active Medications Al Hydrox/Mg Hydrox/Simethicone (Alum-Mag Hydroxide-Simethicone [id number]/5ml Oral Liqd 30 Ml) 15 ml PO Q4H PRN PRN Reason: Indigestion Aspirin (Aspirin Ec 81 Mg Tab) 81 mg PO QDAY SAMARA Atorvastatin Calcium (Atorvastatin 20 Mg Tab) 20 mg PO QHS [facility] Last Admin: 05/02/20 01:56 Dose: 20 mg Documented by: Azithromycin (Azithromycin 250 Mg Tab) 500 mg PO Q24H [facility]; Protocol Stop: 05/05/20 22:01 Enoxaparin Sodium (Enoxaparin 40 Mg/0.4 Ml Inj) 40 mg SUB-Q DAILY [facility]; Protocol Last Admin: 05/02/20 00:19 Dose: 40 mg Documented by: Furosemide (Furosemide 40 Mg/4 Ml Inj) 40 mg IV 0600,1800 [facility] Last Admin: 05/02/20 06:06 Dose: 40 mg Documented by: Ceftriaxone Sodium (Rocephin/Ns 1 Gm/50 Ml) 1 gm in 50 mls @ 100 mls/hr IV Q24H [facility]; Protocol Last Admin: 05/02/20 00:20 Dose: 100 mls/hr Documented by: Lactulose (Lactulose 20 Gm/30 Ml Oral Liqd) 20 gm PO QHS PRN PRN Reason: Constipation Lisinopril (Lisinopril 5 Mg Tab) 5 mg PO QDAY [facility] Metoprolol Tartrate (Metoprolol Tartrate 50 Mg Tab) 50 mg PO BID [facility] Last Admin: 05/02/20 00:20 Dose: 50 mg Documented by: Ondansetron HCl (Ondansetron 4 Mg/2 Ml Inj) 4 mg IV Q4H PRN PRN Reason: Nausea And Vomiting Tramadol HCl (Tramadol 50 Mg Tab) 50 mg PO Q4H PRN PRN Reason: Pain, Moderate (4-6) Trazodone HCl (Trazodone 50 Mg Tab) 50 mg PO QHS PRN PRN Reason: Insomnia Review of Systems Cardiovascular: shortness of breath, no chest pain, no palpitations Physical Examination Vital Signs Temp Pulse Resp BP Pulse Ox 98.3 F 127 H 22 129/99 94 05/01/20 10:49 05/01/20 10:49 05/01/20 10:49 05/01/20 10:49 05/01/20 10:49 General appearance: no acute distress HEENT: Positive: PERRL Neck: Positive: trachea midline Cardiac: Positive: Tachycardia Lungs: Positive: Decreased Breath Sounds Neuro: Positive: Grossly Intact Extremities: Absent: edema Results 05/01/20 12:42 05/01/20 12:42 Cardiac Enzymes 05/01/20 05/01/20 Range/Units 12:42 20:48 AST 19 (5-40) units/L CK-MB (CK-2) 10.1 H (0.0-4.0) ng/mL Lipids 05/01/20 Range/Units 12:42 Triglycerides 64 (2-149) mg/dL Cholesterol 231 H (50-199) mg/dL HDL Cholesterol 67 H (40-59) mg/dL Cholesterol/HDL Ratio 3.44 % CBC 05/01/20 Range/Units 12:42 WBC 5.7 (4.5-11.0) K/mm3 RBC 5.01 (3.65-5.03) M/mm3 Hgb 15.5 H (11.8-15.2) gm/dl Hct 46.4 H (35.5-45.6) % Plt Count 353 (140-440) K/mm3 Lymph # (Auto) 0.7 L (1.2-5.4) K/mm3 [place] # (Auto) 0.6 (0.0-0.8) K/mm3 Eos # (Auto) 0.0 (0.0-0.4) K/mm3 Baso # (Auto) 0.0 (0.0-0.1) K/mm3 Comprehensive Metabolic Panel 05/01/20 Range/Units 12:42 Sodium 141 (137-145) mmol/L Potassium 4.6 (3.6-5.0) mmol/L Chloride 107.1 H (98-107) mmol/L Carbon Dioxide 21 L (22-30) mmol/L BUN 14 (9-20) mg/dL Creatinine 1.1 (0.8-1.3) mg/dL Glucose 87 (75-100) mg/dL Calcium 9.4 (8.4-10.2) mg/dL AST 19 (5-40) units/L ALT 15 (7-56) units/L Alkaline Phosphatase 59 (35-129) units/L Total Protein 6.8 (6.3-8.2) g/dL Albumin 4.1 (3.9-5) g/dL Assessment and Plan - Patient Problems (1) Acute exacerbation of CHF (congestive heart failure) Current Visit: Yes Status: Acute
[2020-05-02] MEDS: LISINOPRIL 5 MG TAB PO SCH (15:45)
[2020-05-02] MEDS: ASPIRIN EC 81 MG TAB PO SCH (15:45)
--- NOTE | 2020-05-02 17:43 | Progress Note ---
Subjective Date of service: 05/02/20 Objective - Constitutional Vitals: Vital Signs - 12hr 05/02/20 05/02/20 05/02/20 09:10 14:00 15:45 Temperature 97.3 F L 98.7 F Pulse Rate 115 H 110 H 108 H Respiratory 18 16 Rate Blood Pressure 162/106 Blood Pressure 129/99 [Right] O2 Sat by Pulse 97 95 Oximetry 05/02/20 15:46 Temperature Pulse Rate 108 H Respiratory Rate Blood Pressure Blood Pressure [Right] O2 Sat by Pulse Oximetry - Labs CBC & Chem 7: 05/01/20 12:42 05/01/20 12:42 Labs: Abnormal lab results 05/01/20 05/01/20 05/01/20 Range/Units 18:03 20:48 Unknown CK-MB (CK-2) 10.1 H (0.0-4.0) ng/mL CK-MB (CK-2) Rel Index 6.6 H (0-4) Troponin T 0.295 H* (0.00-0.029) ng/mL Urine WBC (Auto) 19.0 H (0.0-6.0) /HPF HEART Score - HEART Score Troponin: Troponin T 0.295 ng/mL (0.00-0.029) H* 05/01/20 18:03
[2020-05-02] MEDS ORDERED: AZITHROMYCIN 250 MG TAB PO SCH (22:00)
[2020-05-03] MEDS: traMADol 50 MG TAB PO PRN ×2 (04:25→18:31)
[2020-05-03] MEDS: FUROSEMIDE 40 MG/4 ML INJ IV SCH ×2 (05:47→18:32)
[2020-05-03] MEDS: METOPROLOL TARTRATE 50 MG TAB PO SCH (09:58)
[2020-05-03] MEDS: LISINOPRIL 5 MG TAB PO SCH (09:59)
[2020-05-03] MEDS ORDERED: SPIRONOLACTONE 25 MG TAB PO SCH (10:00)
[2020-05-03] MEDS: ENOXAPARIN 40 MG/0.4 ML INJ SUB-Q SCH (10:05)
[2020-05-03] MEDS: ASPIRIN EC 81 MG TAB PO SCH (10:06)
--- NOTE | 2020-05-03 10:19 | Progress Note ---
Assessment and Plan - Patient Problems (1) Acute exacerbation of CHF (congestive heart failure) Current Visit: Yes Status: Acute Plan to address problem: Hx of dilated nonischemic cardiomyopathy Noncompliant with medical therapy, noncompliant with physician office visits. Echo this presentation shows a LVEF 10-15%. 2013 Echo: LVEF at 20% 2014 Lexiscan thallium stress test was negative. Recommendations: Advised sodium and fluid restrictions. Continue guideline directed medical therapy for systolic heart failure. Subjective Date of service: 05/03/20 Interval history: Patient is resting in bed comfortably and reports he is feeling better. Objective Vital Signs Temp Pulse Resp BP BP Pulse Ox 05/03/20 10:03 98/48 05/03/20 08:06 97 05/03/20 07:16 20 96/63 05/03/20 07:15 95 H 96/63 95 05/03/20 04:25 20 05/03/20 03:20 97.7 F 100 H 14 107/77 96 05/02/20 23:04 98.1 F 63 16 91/69 96 05/02/20 20:12 103 H 05/02/20 19:12 98.0 F 101 H 14 129/89 96 05/02/20 17:50 98.2 F 105 H 18 122/88 97 05/02/20 17:00 112 H 05/02/20 15:53 129/99 05/02/20 15:46 108 H 05/02/20 15:45 108 H 05/02/20 14:00 98.7 F 110 H 16 129/99 95 - Physical Examination General: No Apparent Distress HEENT: Positive: PERRL Neck: Positive: trachea midline Cardiac: Positive: Reg Rate and Rhythm Lungs: Positive: Decreased Breath Sounds Neuro: Positive: Grossly Intact Extremities: Absent: edema
--- NOTE | 2020-05-03 18:43 | Discharge Summary ---
Providers - Providers Date of Admission: 05/01/20 18:43 Date of discharge: 05/03/20 Attending physician: BRENTON GAMING 05/01/20 21:13 Consult to Physician [CONS] Stat Comment: Consulting Provider: SHANNON SUBRAMANIAN Physician Instructions: Reason For Exam: chf Primary care physician: TIE CARRIER Hospitalization Condition: Fair Disposition: DC-30 STILL A PATIENT Exam - Constitutional Vitals: Temp Pulse Resp BP Pulse Ox 98.3 F 91 H 20 111/80 97 05/03/20 11:10 05/03/20 11:22 05/03/20 18:31 05/03/20 11:10 05/03/20 11:10 Plan Follow up with: PRIMARY MD MAINE [Primary Care Provider] - 3-5 Days
[2020-05-03 19:58] VITALS: BP 134/96
== END 2020-05-03 21:05 | disposition home or self-care (01) | DRG 292 ==
LOC: ED 10:37 → 4A 18:43
PROVIDERS: ADMIT Internal Medicine Geriatric Medicine; ATTEND Internal Medicine
DX: I11.0 Hypertensive heart disease with heart failure (principal); N30.00 Acute cystitis without hematuria; I42.8 Other cardiomyopathies; I50.9 Heart failure, unspecified; F10.10 Alcohol abuse, uncomplicated; E78.5 Hyperlipidemia, unspecified; R77.8 Other specified abnormalities of plasma proteins; Z20.822 Contact with and (suspected) exposure to COVID-19; Z91.14 Patient's other noncompliance with medication regimen; Z79.82 Long term (current) use of aspirin; Z79.899 Other long term (current) drug therapy
CPT/HCPCS: 36415; 71046; 80053; 80061; 81001; 82140; 82550; 82553; 83036; 83735; 83880; 84484; 85025; 87040; 87086; 93005; 93306; 96365; 96372; G0378; A9270-GY; J0456; J0696; J1650; J1940; U0003